=== PATIENT | male | born 1970 | race Caucasian/White ===

== ENCOUNTER 2020-11-21 21:22 | Emergency (ER) | payer MEDICAID ==
[~2020-11-21] VITALS: Ht 193 cm; Wt 183.1 kg
[~2020-11-21 21:22] MED LIST: ALBU8.5H5 INH; FAMO-79 PO; GUAI600T31 PO; IPRA4AER INH; NICO-587 TD; PRED20TA PO
[2020-11-21 21:26] VITALS: BP 125/84
--- NOTE | 2020-11-21 21:31 | NUR ---
EKG DONE IN TRIAGE.
--- NOTE | 2020-11-21 22:49 | NUR ---
NIL X 1
--- NOTE | 2020-11-21 23:21 | NUR ---
NIL X 3
== END 2020-11-21 23:23 | disposition left against medical advice (07) ==
LOC: ED 22:00
DX: R06.02 Shortness of breath (principal); Z53.21 Procedure and treatment not carried out due to patient leaving prior to being seen by health care provider
CPT/HCPCS: 93005